=== PATIENT | male | born 1955 | race Caucasian/White ===

== ENCOUNTER → 2016-10-26 | Outpatient (CLI) | payer OTHER ==
[2015-04-15 15:25] VITALS: BP 100/59
[~2016-10-26] MED LIST: ASPIR LOW81 MG PO; BLEPHAMIDE OP; BRILINTA90 MG PO; CRESTOR; CRESTOR 10MG10 MG PO; LISINOPRIL5 MG PO; METOPROLOL SUCC50 M1 PO; NITROGLYCERIN0.4 M1; PAXIL20 MG PO; PEG 335017 GM/Dose PO; PERCOCET 325 MG1 TAB PO; PRILOSEC 20MG20 MG PO; VENTOLIN0.09 MG IH; ZITHROMAX Z PA250 MG PO
== END ==
LOC: RAD 12:00
DX: M51.24 Other intervertebral disc displacement, thoracic region (principal)

== ENCOUNTER → 2017-04-08 | Outpatient (CLI) | payer OTHER ==
[2015-04-15 15:25] VITALS: BP 100/59
== END ==
LOC: RAD 16:30
DX: M54.6 Pain in thoracic spine (principal)

== ENCOUNTER → 2018-01-17 | Outpatient (CLI) | payer BC ==
[2015-04-15 15:25] VITALS: BP 100/59
== END ==
LOC: RAD 16:40
DX: R06.02 Shortness of breath (principal)

== ENCOUNTER → 2018-01-21 | Outpatient (CLI) | payer BC ==
[2015-04-15 15:25] VITALS: BP 100/59
== END ==
LOC: CARDREHAB 09:46 → CARDLAB 09:58
DX: I25.10 Atherosclerotic heart disease of native coronary artery without angina pectoris (principal); R06.02 Shortness of breath; Z82.49 Family history of ischemic heart disease and other diseases of the circulatory system; Z72.0 Tobacco use
CPT/HCPCS: A9500

== ENCOUNTER → 2018-07-09 | Outpatient (CLI) | payer BC ==
[2015-04-15 15:25] VITALS: BP 100/59
[2018-07-09 11:47] LABS: BASO # 0.1 (0.02-0.10); EOS # 0.1 (0.04-0.40); EOS % 1.8 % (0.0-4.0); HEMATOCRIT 43.8 % (42.0-52.0); HEMOGLOBIN 14.3 g/dL (13.5-18.0); LYMPH# 1.9 (1.50-4.00); MEAN CELL VOLUME 98 fl (78-100); MEAN CORPUSCULAR HEMOGLOBIN 32 pg (27-31); MEAN CORPUSCULAR HGB CONC 33 g/dL (33-37); MEAN PLATELET VOLUME 9.9 fl (7.4-10.4); MONO # 0.5 (0.20-0.80); NEU # 4.4 (1.40-6.50); PLATELET COUNT 176 K/mm3 (130-400); RED BLOOD COUNT 4.45 M/mm3 (4.20-5.60); RED CELL DISTRIBUTION WIDTH 13.8 % (11.5-14.5)
[2018-07-09 12:04] LABS: ALBUMIN 4.3 g/dL (3.5-5.0); CALCIUM 8.9 mg/dL (8.4-10.2); POTASSIUM 4.1 mmol/L (3.6-5.0); TOTAL BILIRUBIN 0.5 mg/dL (0.2-1.3); TOTAL PROTEIN 7.8 g/dL (6.3-8.2)
[2018-07-09 12:29] LABS: PROTHROMBIN TIME 10.1 SECONDS (9.0-12.0)
== END ==
LOC: LAB 11:19
PROVIDERS: Internal Medicine
DX: D68.59 Other primary thrombophilia (principal)

== ENCOUNTER → 2019-04-06 | Outpatient (CLI) | payer BC ==
[2015-04-15 15:25] VITALS: BP 100/59
[2019-04-06 17:04] LABS: BASO # 0.1 (0.02-0.10); EOS # 0.2 (0.04-0.40); EOS % 1.5 % (0.0-4.0); HEMATOCRIT 45.9 % (42.0-52.0); HEMOGLOBIN 14.7 g/dL (13.5-18.0); LYMPH# 2.5 (1.50-4.00); MEAN CELL VOLUME 100 fl (78-100); MEAN CORPUSCULAR HEMOGLOBIN 32 pg (27-31); MEAN CORPUSCULAR HGB CONC 32 g/dL (33-37); MONO # 0.8 (0.20-0.80); NEU # 6.3 (1.40-6.50); PLATELET COUNT 204 K/mm3 (130-400); RED CELL DISTRIBUTION WIDTH 13.5 % (11.5-14.5); WHITE BLOOD COUNT 9.8 K/mm3 (4.8-10.8)
[2019-04-06 17:23] LABS: ALBUMIN 4.2 g/dL (3.4-4.8)
[2019-04-06 17:24] LABS: CALCIUM 9.8 mg/dL (8.3-10.5)
[2019-04-06 17:25] LABS: TOTAL PROTEIN 8.2 g/dL (6.2-8.1)
[2019-04-06 17:27] LABS: TOTAL BILIRUBIN 0.4 mg/dL (0.2-1.2)
[2019-04-06 18:07] LABS: URINE APPEARANCE CLEAR; URINE BILIRUBIN NEGATIVE (NEGATIVE); URINE BLOOD 50 ery/uL (NEGATIVE); URINE COLOR YELLOW; URINE GLUCOSE NEGATIVE (NEGATIVE); URINE KETONE NEGATIVE (NEGATIVE); URINE LEUKOCYTE ESTERASE NEGATIVE (NEGATIVE); URINE MUCUS PRESENT (NOT PRESENT); URINE NITRATE NEGATIVE (NEGATIVE); URINE PROTEIN(semi-quant) TRACE mg/dL (NEGATIVE); URINE UROBILINOGEN NORMAL (NORMAL)
[2019-04-06 18:44] LABS: ERYTHROCYTE SEDIMENTATION RATE 36 mm/hr (0-20)
[2019-04-07 15:30] LABS: TESTOSTERONE 220 ng/dL (221-716)
== END ==
LOC: LAB 16:26
PROVIDERS: Internal Medicine
DX: Z00.00 Encounter for general adult medical examination without abnormal findings (principal); Z12.5 Encounter for screening for malignant neoplasm of prostate; Z12.11 Encounter for screening for malignant neoplasm of colon

== ENCOUNTER → 2019-04-20 | Outpatient (CLI) | payer SELFPAY ==
[2015-04-15 15:25] VITALS: BP 100/59
== END ==
LOC: RAD 08:12
DX: M47.26 Other spondylosis with radiculopathy, lumbar region (principal); M25.78 Osteophyte, vertebrae

== ENCOUNTER → 2020-04-25 | Outpatient (CLI) | payer OTHER ==
[2015-04-15 15:25] VITALS: BP 100/59
[2020-04-25 16:40] LABS: EOS # 0.1 (0.04-0.40); EOS % 1.5 % (0.0-4.0); HEMATOCRIT 45.9 % (42.0-52.0); HEMOGLOBIN 14.8 g/dL (13.5-18.0); LYMPH# 2.2 (1.50-4.00); MEAN CELL VOLUME 100 fl (78-100); MEAN CORPUSCULAR HEMOGLOBIN 32 pg (27-31); MEAN CORPUSCULAR HGB CONC 32 g/dL (33-37); MEAN PLATELET VOLUME 10.1 fl (7.4-10.4); MONO # 0.4 (0.20-0.80); NEU # 5.3 (1.40-6.50); PLATELET COUNT 202 K/mm3 (130-400); RED BLOOD COUNT 4.61 M/mm3 (4.20-5.60); RED CELL DISTRIBUTION WIDTH 13.9 % (11.5-14.5); WHITE BLOOD COUNT 8.1 K/mm3 (4.8-10.8)
[2020-04-25 16:49] LABS: ALBUMIN 4.1 g/dL (3.4-4.8)
[2020-04-25 16:52] LABS: TOTAL PROTEIN 7.8 g/dL (6.2-8.1)
[2020-04-25 16:53] LABS: TOTAL BILIRUBIN 0.4 mg/dL (0.2-1.2)
[2020-04-26 20:51] LABS: TESTOSTERONE 301 ng/dL (221-716)
== END ==
LOC: LAB 16:22
PROVIDERS: Internal Medicine
DX: I25.10 Atherosclerotic heart disease of native coronary artery without angina pectoris (principal); K90.9 Intestinal malabsorption, unspecified; N52.9 Male erectile dysfunction, unspecified

== ENCOUNTER → 2020-05-01 | Outpatient (CLI) | payer OTHER ==
[2015-04-15 15:25] VITALS: BP 100/59
== END ==
LOC: RAD 15:20
DX: M17.12 Unilateral primary osteoarthritis, left knee (principal); M25.561 Pain in right knee

== ENCOUNTER → 2020-05-24 | Outpatient (CLI) | payer OTHER ==
[2015-04-15 15:25] VITALS: BP 100/59
[~2020-05-24] MED LIST changes: +FLOMAX0.4 MG PO; +MOBIC15 M1 PO; +NORCO 325 MG-7.1 TA1 PO; +PHARMASSURE CHE30 MG PO; +VITAMIN C PUR1000 MG PO; +VITAMIN D21250 MC1 PO; +ZANAFLEX4 M1 PO
== END ==
LOC: CARDREHAB 08:11 → CARDLAB 13:03
DX: Z01.818 Encounter for other preprocedural examination (principal); I25.10 Atherosclerotic heart disease of native coronary artery without angina pectoris
CPT/HCPCS: A9500

== ENCOUNTER 2020-07-29 11:18 | Emergency (ER) | payer OTHER ==
[~2020-07-29 11:18] MED LIST changes: -FLOMAX0.4 MG PO; -MOBIC15 M1 PO; -NORCO 325 MG-7.1 TA1 PO; -PHARMASSURE CHE30 MG PO; -VITAMIN C PUR1000 MG PO; -VITAMIN D21250 MC1 PO; -ZANAFLEX4 M1 PO
[2020-07-29] MEDS ORDERED: VITAMIN D21250 MC1 PO (11:35)
[2020-07-29] MEDS ORDERED: NORCO 325 MG-7.1 TA1 PO (11:36)
[2020-07-29] MEDS ORDERED: MOBIC15 M1 PO (11:37)
[2020-07-29] MEDS ORDERED: FLOMAX0.4 MG PO (11:40)
[2020-07-29] MEDS ORDERED: VITAMIN C PUR1000 MG PO (11:41)
[2020-07-29] MEDS ORDERED: PHARMASSURE CHE30 MG PO (11:41)
[2020-07-29] MEDS ORDERED: ZANAFLEX4 M1 PO (11:41)
[2020-07-29 12:09] VITALS: BP 100/71
== END 2020-07-29 12:13 | disposition home or self-care (01) ==
LOC: ED 11:18
DX: M51.36 Other intervertebral disc degeneration, lumbar region (principal); G89.29 Other chronic pain; I25.10 Atherosclerotic heart disease of native coronary artery without angina pectoris; E78.5 Hyperlipidemia, unspecified; M17.0 Bilateral primary osteoarthritis of knee; E66.9 Obesity, unspecified; F17.220 Nicotine dependence, chewing tobacco, uncomplicated; Z88.5 Allergy status to narcotic agent; Z88.6 Allergy status to analgesic agent; Z79.899 Other long term (current) drug therapy; Z79.82 Long term (current) use of aspirin; Z98.890 Other specified postprocedural states; Z79.891 Long term (current) use of opiate analgesic

== ENCOUNTER → 2020-12-17 | Outpatient (CLI) | payer OTHER ==
[~2020-12-17] MED LIST changes: +FLOMAX0.4 MG PO; +MOBIC15 M1 PO; +NORCO 325 MG-7.1 TA1 PO; +PHARMASSURE CHE30 MG PO; +VITAMIN C PUR1000 MG PO; +VITAMIN D21250 MC1 PO; +ZANAFLEX4 M1 PO
[2020-12-17 15:37] LABS: BASO # 0.09 K/mm3 (0.02-0.10); EOS # 0.15 K/mm3 (0.04-0.40); EOS % 1.3 % (0.0-4.0); HEMATOCRIT 46.2 % (42.0-52.0); HEMOGLOBIN 15.1 g/dL (13.5-18.0); LYMPH# 2.85 K/mm3 (1.50-4.00); MEAN CELL VOLUME 101 fl (78-100); MEAN CORPUSCULAR HEMOGLOBIN 33 pg (27-31); MEAN CORPUSCULAR HGB CONC 33 g/dL (33-37); MEAN PLATELET VOLUME 9.7 fl (7.4-10.4); MONO # 0.58 K/mm3 (0.20-0.80); NEU # 7.62 K/mm3 (1.40-6.50); PLATELET COUNT 210 K/mm3 (130-400); RED BLOOD COUNT 4.57 M/mm3 (4.20-5.60); RED CELL DISTRIBUTION WIDTH 13.2 % (11.5-14.5); WHITE BLOOD COUNT 11.4 K/mm3 (4.8-10.8)
[2020-12-17 15:44] LABS: ALBUMIN 3.8 g/dL (3.4-4.8); POTASSIUM 4.3 mmol/L (3.5-5.1)
[2020-12-17 15:45] LABS: CALCIUM 9.8 mg/dL (8.3-10.5)
[2020-12-17 15:47] LABS: TOTAL PROTEIN 7.6 g/dL (6.2-8.1)
[2020-12-17 15:49] LABS: TOTAL BILIRUBIN 0.4 mg/dL (0.2-1.2)
== END ==
LOC: LAB 15:16
PROVIDERS: Internal Medicine
DX: I25.10 Atherosclerotic heart disease of native coronary artery without angina pectoris (principal); E78.2 Mixed hyperlipidemia

== ENCOUNTER → 2021-02-25 | Outpatient (CLI) | payer OTHER | LOC: LAB 17:05 | DX: K90.9 Intestinal malabsorption, unspecified (principal) ==

== ENCOUNTER → 2021-05-08 | Outpatient (CLI) | payer OTHER | LOC: LAB 11:07 | DX: R05.9 Cough, unspecified (principal); Z20.822 Contact with and (suspected) exposure to COVID-19 ==

== ENCOUNTER 2021-05-31 15:36 | Emergency (ER) | payer OTHER ==
[~2021-05-31] VITALS: Ht 167.6 cm; Wt 114.2 kg
[2021-05-31] MEDS ORDERED: PROAIR HFA0.09 MG/AC IH (16:25)
[2021-05-31] MEDS ORDERED: LOW DOSE ASPIRI81 M1 PO (16:26)
[2021-05-31] MEDS ORDERED: AMOXICILLIN AND1 TA2 PO (16:26)
[2021-05-31] MEDS ORDERED: ZYRTEC ALLERGY10 MG PO (16:27)
[2021-05-31] MEDS ORDERED: KLONOPIN 1MG1 MG PO (16:28)
[2021-05-31] MEDS ORDERED: VITAMIN D21250 MCG PO (16:29)
[2021-05-31] MEDS ORDERED: LOPRESSOR 550 MG/TAB PO (16:30)
[2021-05-31 16:32] LABS: BASO # 0.04 K/mm3 (0.02-0.10); EOS # 0.21 K/mm3 (0.04-0.40); EOS % 1.7 % (0.0-4.0); HEMATOCRIT 48.9 % (42.0-52.0); HEMOGLOBIN 16.2 g/dL (13.5-18.0); LYMPH# 2.41 K/mm3 (1.50-4.00); MEAN CELL VOLUME 100 fl (78-100); MEAN CORPUSCULAR HEMOGLOBIN 33 pg (27-31); MEAN CORPUSCULAR HGB CONC 33 g/dL (33-37); MEAN PLATELET VOLUME 10.3 fl (7.4-10.4); MONO # 0.57 K/mm3 (0.20-0.80); NEU # 8.98 K/mm3 (1.40-6.50); PLATELET COUNT 198 K/mm3 (130-400); RED BLOOD COUNT 4.91 M/mm3 (4.20-5.60); RED CELL DISTRIBUTION WIDTH 13.6 % (11.5-14.5); WHITE BLOOD COUNT 12.3 K/mm3 (4.8-10.8)
[2021-05-31] MEDS ORDERED: PAROXETINE HYDR20 MG PO (16:33)
[2021-05-31] MEDS ORDERED: MULTI-VITAMIN1 EACH PO (16:34)
[2021-05-31 16:44] LABS: ALBUMIN 4.1 g/dL (3.4-4.8)
[2021-05-31 16:45] LABS: POTASSIUM 3.8 mmol/L (3.5-5.1)
[2021-05-31 16:46] LABS: CALCIUM 9.3 mg/dL (8.3-10.5)
[2021-05-31 16:47] LABS: TOTAL PROTEIN 7.6 g/dL (6.2-8.1)
[2021-05-31 16:49] LABS: TOTAL BILIRUBIN 0.6 mg/dL (0.2-1.2)
[2021-05-31 17:14] LABS: PROTHROMBIN TIME 10.7 SECONDS (9.0-12.0)
[2021-05-31 17:14] LABS: URINE APPEARANCE CLEAR; URINE BILIRUBIN NEGATIVE (NEGATIVE); URINE BLOOD TRACE (NEGATIVE); URINE COLOR YELLOW; URINE GLUCOSE NEGATIVE (NEGATIVE); URINE KETONE NEGATIVE (NEGATIVE); URINE LEUKOCYTE ESTERASE TRACE (NEGATIVE); URINE NITRATE NEGATIVE (NEGATIVE); URINE PROTEIN(semi-quant) TRACE (NEGATIVE); URINE UROBILINOGEN NORMAL (NORMAL)
[2021-05-31 17:15] LABS: URINE MUCUS PRESENT (NOT PRESENT)
[2021-05-31 21:09] VITALS: BP 140/80
== END 2021-05-31 21:09 | disposition home or self-care (01) ==
LOC: ED 15:36
PROVIDERS: Family Medicine
DX: R07.89 Other chest pain (principal); Z95.5 Presence of coronary angioplasty implant and graft
CPT/HCPCS: J7030

== ENCOUNTER → 2021-06-26 | Outpatient (CLI) | payer OTHER ==
[~2021-06-26] MED LIST changes: +AMOXICILLIN AND1 TA2 PO; +KLONOPIN 1MG1 MG PO; +LOPRESSOR 550 MG/TAB PO; +LOW DOSE ASPIRI81 M1 PO; +MULTI-VITAMIN1 EACH PO; +PAROXETINE HYDR20 MG PO; +PROAIR HFA0.09 MG/AC IH; +VITAMIN D21250 MCG PO; +ZYRTEC ALLERGY10 MG PO
[2021-06-26 15:38] LABS: BASO # 0.06 K/mm3 (0.02-0.10); EOS # 0.17 K/mm3 (0.04-0.40); EOS % 1.8 % (0.0-4.0); HEMATOCRIT 47.2 % (42.0-52.0); HEMOGLOBIN 15.2 g/dL (13.5-18.0); LYMPH# 2.31 K/mm3 (1.50-4.00); MEAN CELL VOLUME 102 fl (78-100); MEAN CORPUSCULAR HEMOGLOBIN 33 pg (27-31); MEAN CORPUSCULAR HGB CONC 32 g/dL (33-37); MEAN PLATELET VOLUME 9.9 fl (7.4-10.4); MONO # 0.53 K/mm3 (0.20-0.80); NEU # 6.22 K/mm3 (1.40-6.50); PLATELET COUNT 201 K/mm3 (130-400); RED BLOOD COUNT 4.62 M/mm3 (4.20-5.60); RED CELL DISTRIBUTION WIDTH 13.3 % (11.5-14.5); WHITE BLOOD COUNT 9.3 K/mm3 (4.8-10.8)
[2021-06-26 15:44] LABS: ALBUMIN 4.1 g/dL (3.4-4.8); POTASSIUM 4.4 mmol/L (3.5-5.1)
[2021-06-26 15:45] LABS: CALCIUM 9.3 mg/dL (8.3-10.5)
[2021-06-26 15:46] LABS: TOTAL PROTEIN 7.7 g/dL (6.2-8.1)
[2021-06-26 15:48] LABS: TOTAL BILIRUBIN 0.5 mg/dL (0.2-1.2)
== END ==
LOC: LAB 15:20
PROVIDERS: Internal Medicine
DX: I25.10 Atherosclerotic heart disease of native coronary artery without angina pectoris (principal); J45.990 Exercise induced bronchospasm; M46.94 Unspecified inflammatory spondylopathy, thoracic region; E78.2 Mixed hyperlipidemia; K90.9 Intestinal malabsorption, unspecified; G47.30 Sleep apnea, unspecified; R73.03 Prediabetes

== ENCOUNTER → 2021-07-18 | Outpatient (CLI) | payer OTHER | LOC: CARDREHAB 09:25 | DX: I25.10 Atherosclerotic heart disease of native coronary artery without angina pectoris (principal) | CPT/HCPCS: A9500 ==

== ENCOUNTER → 2021-10-07 | Outpatient (CLI) | payer OTHER ==
[2021-10-07 15:07] LABS: ALBUMIN 4.3 g/dL (3.4-4.8)
[2021-10-07 15:08] LABS: POTASSIUM 4.8 mmol/L (3.5-5.1)
[2021-10-07 15:10] LABS: TOTAL PROTEIN 8.6 g/dL (6.2-8.1)
[2021-10-07 15:12] LABS: TOTAL BILIRUBIN 0.7 mg/dL (0.2-1.2)
== END ==
LOC: LAB 14:47
PROVIDERS: Internal Medicine
DX: J45.990 Exercise induced bronchospasm (principal); M46.94 Unspecified inflammatory spondylopathy, thoracic region; E78.2 Mixed hyperlipidemia; G47.30 Sleep apnea, unspecified; M25.561 Pain in right knee; M25.562 Pain in left knee; E11.9 Type 2 diabetes mellitus without complications

== ENCOUNTER → 2021-11-28 | Outpatient (CLI) | payer MEDICARE, OTHER ==
[2021-11-28 16:55] LABS: BASO # 0.06 K/mm3 (0.02-0.10); EOS # 0.16 K/mm3 (0.04-0.40); EOS % 1.4 % (0.0-4.0); HEMATOCRIT 48.3 % (42.0-52.0); HEMOGLOBIN 15.6 g/dL (13.5-18.0); LYMPH# 2.33 K/mm3 (1.50-4.00); MEAN CELL VOLUME 100 fl (78-100); MEAN CORPUSCULAR HEMOGLOBIN 32 pg (27-31); MEAN CORPUSCULAR HGB CONC 32 g/dL (33-37); MEAN PLATELET VOLUME 9.6 fl (7.4-10.4); MONO # 0.56 K/mm3 (0.20-0.80); NEU # 8.51 K/mm3 (1.40-6.50); PLATELET COUNT 220 K/mm3 (130-400); RED BLOOD COUNT 4.82 M/mm3 (4.20-5.60); RED CELL DISTRIBUTION WIDTH 14.4 % (11.5-14.5); WHITE BLOOD COUNT 11.7 K/mm3 (4.8-10.8)
[2021-11-28 17:03] LABS: ALBUMIN 4.1 g/dL (3.4-4.8); POTASSIUM 3.6 mmol/L (3.5-5.1)
[2021-11-28 17:04] LABS: CALCIUM 9.5 mg/dL (8.3-10.5)
[2021-11-28 17:05] LABS: TOTAL PROTEIN 7.9 g/dL (6.2-8.1)
[2021-11-28 17:07] LABS: TOTAL BILIRUBIN 0.5 mg/dL (0.2-1.2)
== END ==
LOC: LAB 16:25
PROVIDERS: Internal Medicine
DX: Z12.5 Encounter for screening for malignant neoplasm of prostate (principal); M17.0 Bilateral primary osteoarthritis of knee; K21.9 Gastro-esophageal reflux disease without esophagitis; E66.9 Obesity, unspecified; G47.30 Sleep apnea, unspecified; I25.10 Atherosclerotic heart disease of native coronary artery without angina pectoris; J45.990 Exercise induced bronchospasm; E78.2 Mixed hyperlipidemia; M25.561 Pain in right knee; E11.9 Type 2 diabetes mellitus without complications

== ENCOUNTER → 2022-04-09 | Outpatient (CLI) | payer MEDICARE, OTHER ==
[2022-04-09 14:44] LABS: BASO # 0.07 K/mm3 (0.02-0.10); HEMATOCRIT 47.4 % (42.0-52.0); HEMOGLOBIN 15.6 g/dL (13.5-18.0); LYMPH# 2.27 K/mm3 (1.50-4.00); MEAN CELL VOLUME 99 fl (78-100); MEAN CORPUSCULAR HEMOGLOBIN 32 pg (27-31); MEAN CORPUSCULAR HGB CONC 33 g/dL (33-37); MEAN PLATELET VOLUME 9.4 fl (7.4-10.4); MONO # 0.58 K/mm3 (0.20-0.80); NEU # 6.75 K/mm3 (1.40-6.50); PLATELET COUNT 209 K/mm3 (130-400); RED BLOOD COUNT 4.81 M/mm3 (4.20-5.60); RED CELL DISTRIBUTION WIDTH 13.9 % (11.5-14.5); WHITE BLOOD COUNT 9.9 K/mm3 (4.8-10.8)
[2022-04-09 15:05] LABS: ALBUMIN 3.9 g/dL (3.4-4.8)
[2022-04-09 15:06] LABS: POTASSIUM 3.5 mmol/L (3.5-5.1)
[2022-04-09 15:07] LABS: CALCIUM 9.4 mg/dL (8.3-10.5)
[2022-04-09 15:08] LABS: TOTAL PROTEIN 7.7 g/dL (6.2-8.1)
[2022-04-09 15:10] LABS: TOTAL BILIRUBIN 0.4 mg/dL (0.2-1.2)
[2022-04-09 15:14] LABS: MAGNESIUM 2.02 mg/dL (1.60-2.60)
== END ==
LOC: LAB 14:21
PROVIDERS: Internal Medicine
DX: I25.10 Atherosclerotic heart disease of native coronary artery without angina pectoris (principal); K90.9 Intestinal malabsorption, unspecified; E11.9 Type 2 diabetes mellitus without complications; E78.2 Mixed hyperlipidemia; M17.0 Bilateral primary osteoarthritis of knee; K21.9 Gastro-esophageal reflux disease without esophagitis; E66.9 Obesity, unspecified; G47.30 Sleep apnea, unspecified; J45.990 Exercise induced bronchospasm; M25.561 Pain in right knee

== ENCOUNTER → 2022-04-29 | Outpatient (CLI) | payer MEDICARE, OTHER | LOC: LAB 14:38 | DX: M18.12 Unilateral primary osteoarthritis of first carpometacarpal joint, left hand (principal); B34.9 Viral infection, unspecified ==

== ENCOUNTER → 2022-05-05 | Outpatient (CLI) | payer MEDICARE, OTHER | LOC: RAD 10:25 | DX: M75.122 Complete rotator cuff tear or rupture of left shoulder, not specified as traumatic (principal) ==

== ENCOUNTER → 2022-06-18 | Outpatient (CLI) | payer MEDICARE, OTHER ==
[2022-06-18 14:49] LABS: ALBUMIN 3.9 g/dL (3.4-4.8); POTASSIUM 4.1 mmol/L (3.5-5.1)
[2022-06-18 14:50] LABS: CALCIUM 9.4 mg/dL (8.3-10.5)
[2022-06-18 14:52] LABS: TOTAL PROTEIN 7.7 g/dL (6.2-8.1)
[2022-06-18 14:53] LABS: TOTAL BILIRUBIN 0.4 mg/dL (0.2-1.2)
[2022-06-18 16:09] LABS: URINE APPEARANCE HAZY; URINE COLOR AMBER
[2022-06-18 16:10] LABS: URINE BILIRUBIN 1+ (NEGATIVE); URINE BLOOD NEGATIVE (NEGATIVE); URINE GLUCOSE NEGATIVE (NEGATIVE); URINE KETONE NEGATIVE (NEGATIVE); URINE LEUKOCYTE ESTERASE NEGATIVE (NEGATIVE); URINE NITRATE NEGATIVE (NEGATIVE); URINE PROTEIN(semi-quant) TRACE (NEGATIVE); URINE UROBILINOGEN 4 mg/dL (NORMAL); URINE WBC 0-1 /hpf (0-3)
[2022-06-18 16:11] LABS: URINE MUCUS PRESENT (NOT PRESENT)
== END ==
LOC: LAB 14:26
PROVIDERS: Internal Medicine
DX: M17.0 Bilateral primary osteoarthritis of knee (principal); I25.10 Atherosclerotic heart disease of native coronary artery without angina pectoris; N40.1 Benign prostatic hyperplasia with lower urinary tract symptoms; K90.9 Intestinal malabsorption, unspecified; G47.30 Sleep apnea, unspecified; J45.990 Exercise induced bronchospasm; E11.9 Type 2 diabetes mellitus without complications; E78.2 Mixed hyperlipidemia

== ENCOUNTER 2022-10-15 13:10 | Outpatient (RCR) | payer MEDICARE, OTHER | END 2022-11-12 | disposition home or self-care (01) | LOC: PT | DX: M46.1 Sacroiliitis, not elsewhere classified (principal) ==

== ENCOUNTER 2022-10-26 12:58 | Outpatient (RCR) | payer MEDICARE, OTHER | END 2022-11-12 | disposition home or self-care (01) | LOC: PT | DX: Z96.612 Presence of left artificial shoulder joint (principal) ==

== ENCOUNTER 2022-11-17 07:50 | Outpatient (RCR) | payer MEDICARE, OTHER | END 2022-12-12 | disposition home or self-care (01) | LOC: PT | DX: M46.1 Sacroiliitis, not elsewhere classified (principal) ==

== ENCOUNTER → 2022-11-17 | Outpatient (CLI) | payer MEDICARE, OTHER | LOC: RAD 07:34 | DX: M54.16 Radiculopathy, lumbar region (principal); M46.1 Sacroiliitis, not elsewhere classified ==

== ENCOUNTER → 2022-12-14 | Day surgery (SDC) | payer MEDICARE, OTHER | END | disposition home or self-care (01) | LOC: MSO 08:46 | DX: Z12.11 Encounter for screening for malignant neoplasm of colon (principal); D12.3 Benign neoplasm of transverse colon; G47.33 Obstructive sleep apnea (adult) (pediatric); F17.290 Nicotine dependence, other tobacco product, uncomplicated; Z99.81 Dependence on supplemental oxygen | CPT/HCPCS: 00811; J2704; J7120 ==

== ENCOUNTER → 2022-12-29 | Outpatient (CLI) | payer MEDICARE, OTHER | LOC: RAD 08:21 | DX: M25.512 Pain in left shoulder (principal); Z96.612 Presence of left artificial shoulder joint ==

== ENCOUNTER 2023-01-19 10:34 | Outpatient (RCR) | payer MEDICARE, OTHER | END 2023-02-11 16:16 | disposition home or self-care (01) | LOC: PT 10:34 | DX: Z96.612 Presence of left artificial shoulder joint (principal) ==

== ENCOUNTER → 2023-03-22 | Outpatient (CLI) | payer MEDICARE, OTHER | LOC: RAD 10:13 | DX: M25.512 Pain in left shoulder (principal); Z96.612 Presence of left artificial shoulder joint ==

== ENCOUNTER 2023-04-28 14:19 | Outpatient (RCR) | payer MEDICARE, OTHER | END 2023-05-13 | disposition home or self-care (01) | LOC: PT | DX: M25.511 Pain in right shoulder (principal) ==

== ENCOUNTER → 2023-05-31 | Outpatient (CLI) | payer MEDICARE, OTHER | LOC: RAD 13:46 | DX: M19.011 Primary osteoarthritis, right shoulder (principal) ==

== ENCOUNTER → 2023-06-01 | Outpatient (CLI) | payer MEDICARE, OTHER ==
[2023-06-01 08:50] LABS: BASO # 0.06 K/mm3 (0.02-0.10); EOS # 0.14 K/mm3 (0.04-0.40); EOS % 1.4 % (0.0-4.0); HEMATOCRIT 50.6 % (42.0-52.0); HEMOGLOBIN 16.4 g/dL (13.5-18.0); LYMPH# 2.36 K/mm3 (1.50-4.00); MEAN CELL VOLUME 100 fl (78-100); MEAN CORPUSCULAR HEMOGLOBIN 32 pg (27-31); MEAN CORPUSCULAR HGB CONC 32 g/dL (33-37); MEAN PLATELET VOLUME 9.6 fl (7.4-10.4); MONO # 0.48 K/mm3 (0.20-0.80); NEU # 7.13 K/mm3 (1.40-6.50); PLATELET COUNT 207 K/mm3 (130-400); RED BLOOD COUNT 5.08 M/mm3 (4.20-5.60); RED CELL DISTRIBUTION WIDTH 14.4 % (11.5-14.5); WHITE BLOOD COUNT 10.2 K/mm3 (4.8-10.8)
[2023-06-01 08:56] LABS: CALCIUM 9.3 mg/dL (8.3-10.5)
[2023-06-01 08:57] LABS: TOTAL PROTEIN 7.8 g/dL (6.2-8.1)
[2023-06-01 08:59] LABS: TOTAL BILIRUBIN 0.5 mg/dL (0.2-1.2)
[2023-06-01 09:04] LABS: MAGNESIUM 2.13 mg/dL (1.60-2.60)
[2023-06-01 09:17] LABS: PROTHROMBIN TIME 10.5 SECONDS (9.0-12.0)
[2023-06-01 10:27] LABS: PH-URINE 5.5 (5.0 - 8.0); URINE APPEARANCE CLEAR (CLEAR); URINE BILIRUBIN NEGATIVE (NEGATIVE); URINE BLOOD NEGATIVE (NEGATIVE); URINE COLOR YELLOW (YELLOW); URINE GLUCOSE NEGATIVE (NEGATIVE); URINE KETONE NEGATIVE (NEGATIVE); URINE LEUKOCYTE ESTERASE NEGATIVE (NEGATIVE); URINE NITRATE NEGATIVE (NEGATIVE); URINE PROTEIN(semi-quant) NEGATIVE (NEGATIVE)
== END ==
LOC: LAB 08:16
PROVIDERS: Internal Medicine
DX: Z01.818 Encounter for other preprocedural examination (principal); Z12.5 Encounter for screening for malignant neoplasm of prostate; K90.9 Intestinal malabsorption, unspecified; E78.2 Mixed hyperlipidemia; E11.9 Type 2 diabetes mellitus without complications

== ENCOUNTER → 2023-07-08 | Outpatient (CLI) | payer MEDICARE, OTHER | LOC: LAB 11:30 | DX: R20.2 Paresthesia of skin (principal) ==

== ENCOUNTER 2023-07-14 08:00 | Outpatient (RCR) | payer MEDICARE, OTHER | END 2023-08-13 | LOC: PT | DX: Z96.611 Presence of right artificial shoulder joint (principal) ==

== ENCOUNTER → 2023-11-10 | Outpatient (CLI) | payer MEDICARE, OTHER | LOC: RAD 12:56 | DX: M19.042 Primary osteoarthritis, left hand (principal) ==

== ENCOUNTER → 2023-11-24 | Outpatient (CLI) | payer MEDICARE, OTHER ==
[2023-11-24 11:03] LABS: BASO # 0.03 K/mm3 (0.02-0.10); EOS # 0.18 K/mm3 (0.04-0.40); EOS % 2.1 % (0.0-4.0); HEMATOCRIT 47.2 % (42.0-52.0); HEMOGLOBIN 15.1 g/dL (13.5-18.0); LYMPH# 2.13 K/mm3 (1.50-4.00); MEAN CELL VOLUME 94 fl (78-100); MEAN CORPUSCULAR HEMOGLOBIN 30 pg (27-31); MEAN CORPUSCULAR HGB CONC 32 g/dL (33-37); MEAN PLATELET VOLUME 9.4 fl (7.4-10.4); MONO # 0.41 K/mm3 (0.20-0.80); PLATELET COUNT 217 K/mm3 (130-400); RED BLOOD COUNT 5.05 M/mm3 (4.20-5.60); WHITE BLOOD COUNT 8.4 K/mm3 (4.8-10.8)
[2023-11-24 11:11] LABS: ALBUMIN 4.1 g/dL (3.4-4.8)
[2023-11-24 11:12] LABS: CALCIUM 9.8 mg/dL (8.3-10.5)
[2023-11-24 11:14] LABS: TOTAL PROTEIN 7.9 g/dL (6.2-8.1)
[2023-11-24 11:15] LABS: TOTAL BILIRUBIN 0.6 mg/dL (0.2-1.2)
[2023-11-24 11:20] LABS: MAGNESIUM 2.22 mg/dL (1.60-2.60)
== END ==
LOC: LAB 10:48
PROVIDERS: Internal Medicine
DX: E11.9 Type 2 diabetes mellitus without complications (principal); I25.10 Atherosclerotic heart disease of native coronary artery without angina pectoris; K90.9 Intestinal malabsorption, unspecified

== ENCOUNTER → 2024-07-03 | Outpatient (CLI) | payer MEDICARE, OTHER ==
[2024-07-03 15:00] LABS: URINE WBC 0 /hpf (0-3)
[2024-07-03 15:14] LABS: BASO # 0.05 K/mm3 (0.02-0.10); EOS # 0.18 K/mm3 (0.04-0.40); EOS % 1.9 % (0.0-4.0); HEMATOCRIT 46.5 % (42.0-52.0); HEMOGLOBIN 16.1 g/dL (13.5-18.0); LYMPH# 2.19 K/mm3 (1.50-4.00); MEAN CELL VOLUME 98 fl (78-100); MEAN CORPUSCULAR HEMOGLOBIN 34 pg (27-31); MEAN CORPUSCULAR HGB CONC 35 g/dL (33-37); MEAN PLATELET VOLUME 9.4 fl (7.4-10.4); MONO # 0.45 K/mm3 (0.20-0.80); NEU # 6.58 K/mm3 (1.40-6.50); PLATELET COUNT 212 K/mm3 (130-400); RED BLOOD COUNT 4.76 M/mm3 (4.20-5.60); RED CELL DISTRIBUTION WIDTH 14.4 % (11.5-14.5); WHITE BLOOD COUNT 9.5 K/mm3 (4.8-10.8)
[2024-07-03 15:21] LABS: CALCIUM 9.5 mg/dL (8.3-10.5)
[2024-07-03 15:23] LABS: TOTAL PROTEIN 8.7 g/dL (6.2-8.1)
[2024-07-03 15:24] LABS: TOTAL BILIRUBIN 0.4 mg/dL (0.2-1.2)
[2024-07-03 15:30] LABS: MAGNESIUM 2.06 mg/dL (1.60-2.60)
[2024-07-03 15:39] LABS: PH-URINE 5.5 (5.0 - 8.0); URINE APPEARANCE CLEAR (CLEAR); URINE BILIRUBIN NEGATIVE (NEGATIVE); URINE BLOOD NEGATIVE (NEGATIVE); URINE COLOR YELLOW (YELLOW); URINE GLUCOSE NEGATIVE (NEGATIVE); URINE KETONE NEGATIVE (NEGATIVE); URINE LEUKOCYTE ESTERASE NEGATIVE (NEGATIVE); URINE NITRATE NEGATIVE (NEGATIVE); URINE PROTEIN(semi-quant) NEGATIVE (NEGATIVE)
[2024-07-03 22:59] LABS: CREATININE OTHER SOURCE 138 mg/dL (47-110)
== END ==
LOC: LAB 14:48
PROVIDERS: Internal Medicine
DX: Z12.5 Encounter for screening for malignant neoplasm of prostate (principal); Z12.11 Encounter for screening for malignant neoplasm of colon; I25.10 Atherosclerotic heart disease of native coronary artery without angina pectoris; K90.9 Intestinal malabsorption, unspecified; E78.2 Mixed hyperlipidemia; E11.9 Type 2 diabetes mellitus without complications